=== PATIENT | male | born 1955 | race Caucasian/White ===

== ENCOUNTER → 2017-07-03 | Outpatient (CLI) | payer BC ==
[~2017-07-03] MED LIST: ASPIRIN 32325 MG/TAB PO; ASPIRIN 81M81 MG/TA2 PO; BUPROPRION; CYMBALTA PO; DIOVAN 80MG80 MG PO; DIOVAN160 MG PO; LIPITOR 80MG80 MG PO; LOPRESSOR 550 MG/TAB PO; MOTRIN 800800 MG/TAB PO; PLAVIX 75MG TAB75 MG PO; WELLBUTRIN XL300 M1 PO
== END ==
LOC: COL.RAD 07:45
DX: M25.512 Pain in left shoulder (principal)
CPT/HCPCS: J2704; J3301; Q9967

== ENCOUNTER → 2017-11-15 | Outpatient (CLI) | payer BC | LOC: SUN.DIA 13:28 | DX: E11.9 Type 2 diabetes mellitus without complications (principal); I10 Essential (primary) hypertension; E66.9 Obesity, unspecified | CPT/HCPCS: G0108 ==

== ENCOUNTER → 2017-12-06 | Outpatient (CLI) | payer BC | LOC: SUN.DIA 08:34 | DX: E11.9 Type 2 diabetes mellitus without complications (principal); I10 Essential (primary) hypertension; E66.9 Obesity, unspecified | CPT/HCPCS: G0108 ==

== ENCOUNTER → 2017-12-26 | Outpatient (CLI) | payer BC | LOC: SUN.DIA 09:56 | DX: E11.9 Type 2 diabetes mellitus without complications (principal); I10 Essential (primary) hypertension; E66.9 Obesity, unspecified | CPT/HCPCS: G0109 ==

== ENCOUNTER → 2018-01-02 | Outpatient (CLI) | payer BC | LOC: SUN.DIA 16:06 | DX: E11.9 Type 2 diabetes mellitus without complications (principal); I10 Essential (primary) hypertension; E66.9 Obesity, unspecified | CPT/HCPCS: G0109 ==

== ENCOUNTER → 2018-01-09 | Outpatient (CLI) | payer BC | LOC: SUN.DIA 08:15 | DX: E11.9 Type 2 diabetes mellitus without complications (principal); I10 Essential (primary) hypertension; E66.9 Obesity, unspecified | CPT/HCPCS: G0109 ==

== ENCOUNTER → 2018-01-16 | Outpatient (CLI) | payer BC | LOC: SUN.DIA 14:13 | DX: E11.9 Type 2 diabetes mellitus without complications (principal); I10 Essential (primary) hypertension; E66.9 Obesity, unspecified | CPT/HCPCS: G0109 ==

== ENCOUNTER 2018-03-05 15:10 | Emergency (ER) | payer SELFPAY ==
[~2018-03-05] VITALS: Ht 182.9 cm; Wt 129.5 kg
[2018-03-05 15:19] VITALS: BP 142/75; TEMP 98.2
[2018-03-05] MEDS ORDERED: NORCO 325 MG-51 TAB PO (16:27)
[2018-03-05 16:41] VITALS: PULSE 66
== END 2018-03-05 16:41 | disposition home or self-care (01) ==
LOC: COL.ER 15:10
DX: S20.219A Contusion of unspecified front wall of thorax, initial encounter (principal); I10 Essential (primary) hypertension; E11.9 Type 2 diabetes mellitus without complications; E78.00 Pure hypercholesterolemia, unspecified; Z79.02 Long term (current) use of antithrombotics/antiplatelets; Z79.82 Long term (current) use of aspirin; V29.9XXA Motorcycle rider (driver) (passenger) injured in unspecified traffic accident, initial encounter; Y92.410 Unspecified street and highway as the place of occurrence of the external cause
CPT/HCPCS: J3010

== ENCOUNTER → 2018-04-09 | Outpatient (CLI) | payer BC ==
[~2018-04-09] MED LIST changes: +NORCO 325 MG-51 TAB PO
== END ==
LOC: SUN.DIA 08:36
DX: E11.9 Type 2 diabetes mellitus without complications (principal); I10 Essential (primary) hypertension; E66.9 Obesity, unspecified
CPT/HCPCS: G0108

== ENCOUNTER → 2018-07-09 | Outpatient (CLI) | payer BC | LOC: SUN.DIA 09:27 | DX: E11.9 Type 2 diabetes mellitus without complications (principal); I10 Essential (primary) hypertension; E66.9 Obesity, unspecified | CPT/HCPCS: G0108 ==

== ENCOUNTER → 2018-10-01 | Outpatient (CLI) | payer BC | LOC: DIA.ED 09:53 → SUN.DIA 15:44 | DX: E11.9 Type 2 diabetes mellitus without complications (principal); I10 Essential (primary) hypertension; E66.9 Obesity, unspecified | CPT/HCPCS: G0108 ==

== ENCOUNTER 2019-11-23 17:00 | Emergency (ER) | payer MEDICARE, OTHER ==
[~2019-11-23] VITALS: Ht 182.9 cm; Wt 131.8 kg
[2019-11-23 17:14] VITALS: BP 129/78; TEMP 97.6
[2019-11-23] MEDS ORDERED: CEPHALEXIN500 M1 PO (18:11)
[2019-11-23 18:48] VITALS: PULSE 78
== END 2019-11-23 18:48 | disposition home or self-care (01) ==
LOC: COL.ER 17:00
DX: S61.210A Laceration without foreign body of right index finger without damage to nail, initial encounter (principal); Z79.02 Long term (current) use of antithrombotics/antiplatelets; Z79.82 Long term (current) use of aspirin; W27.0XXA Contact with workbench tool, initial encounter; Y92.009 Unspecified place in unspecified non-institutional (private) residence as the place of occurrence of the external cause

== ENCOUNTER → 2019-12-05 | Outpatient (CLI) | payer MEDICARE, OTHER ==
[~2019-12-05] MED LIST changes: +CEPHALEXIN500 M1 PO
[2019-12-05 08:07] VITALS: BP 127/78; PULSE 58; TEMP 97.1
== END ==
LOC: COL.ER 07:54
DX: Z48.02 Encounter for removal of sutures (principal)

== ENCOUNTER 2020-07-21 10:09 | Day surgery (SDC) | payer MEDICARE, OTHER ==
[~2020-07-21] VITALS: Ht 182.9 cm; Wt 135.7 kg
[2020-07-21] VITALS (301 sets, daily range): BP systolic 126–158; BP diastolic 71–97; PULSE 53–91; TEMP 97.4–98.7; O2SAT 93–100
[2020-07-21] MEDS ORDERED: COZAAR100 MG PO (10:34)
[2020-07-21] MEDS ORDERED: NORVASC 5MG5 MG/TAB PO (10:35)
[2020-07-21] MEDS ORDERED: GLUCOPHAGE500 MG/TAB PO (10:36)
[2020-07-21] MEDS ORDERED: JARDIANCE25 PO (10:36)
[2020-07-21] MEDS ORDERED: LANTUS100 U/ML SQ (10:37)
[2020-07-21] MEDS ORDERED: INSULIN LI100 UNIT/2 SQ (10:38)
[2020-07-21] MEDS ORDERED: TRULICITY3 MG/0.5 M SQ (10:39)
[2020-07-21 11:22] LABS: HEMOGLOBIN 14.7 g/dl (13.5-18.0); MEAN CELL VOLUME 82 fl (80.0-100.0); MEAN CORPUSCULAR HEMOGLOBIN 27 pg (27.0-31.0); MEAN CORPUSCULAR HGB CONC 33 g/dl (33.0-37.0); MEAN PLATELET VOLUME 9.2 fl (7.4-10.4); PLATELET COUNT 167 K/mm3 (130-400); RED BLOOD COUNT 5.37 M/mm3 (4.20-5.60); REDCELL DISTRIBUTION WIDTH-CV 13.6 % (11.5-14.5)
[2020-07-21 11:40] LABS: ALBUMIN 4.1 gm/dL (3.5-5.0); BILIRUBIN,TOTAL 0.5 mg/dL (0.0-1.0); CALCIUM 9.1 mg/dL (8.4-10.2); CREATININE, serum 0.93 (0.66-1.25); INR 1.1 (0.8-3.0); POTASSIUM 4.1 mmol/L (3.4-5.0); PROTHROMBIN TIME 11.9 SECONDS (9.7-12.8); TOTAL PROTEIN 6.9 gm/dL (6.4-8.2)
[2020-07-21 12:51] LABS: THYROID STIMULATING HORMONE 5.14 uIU/mL (0.465-4.680)
[2020-07-21 12:59] LABS: MAGNESIUM 2.2 mg/dL (1.6-2.3)
--- NOTE | 2020-07-21 19:04 | NUR ---
Pt TR band removed at 1845. No bleeding or drainage noted. Bandage put in place. PT denies any pain. Vitals are WNL. Report given to PAT Rivas. Care relinquished at this time.
[2020-07-22] VITALS (239 sets, daily range): BP systolic 119–157; BP diastolic 75–99; PULSE 60–65; TEMP 98–98.7; O2SAT 91–99
[2020-07-22 04:45] LABS: BASO % 0.4 % (0.0-2.0); EOS # 0.2 (0.0-0.7); EOS % 2.5 % (0-4.0); GRAN # 5.3 (1.4-6.5); GRAN % 65.7 % (42.2-75.2); HEMATOCRIT 46.1 % (42.0-52.0); HEMOGLOBIN 15.2 g/dl (13.5-18.0); LYMPH # 1.8 (1.2-3.4); LYMPH % 22.1 % (20.0-51.0); MEAN CELL VOLUME 83 fl (80.0-100.0); MEAN CORPUSCULAR HEMOGLOBIN 27 pg (27.0-31.0); MEAN CORPUSCULAR HGB CONC 33 g/dl (33.0-37.0); MEAN PLATELET VOLUME 9.2 fl (7.4-10.4); MONO # 0.7 (0.1-0.6); MONO % 8.9 % (1.7-9.3); PLATELET COUNT 153 K/mm3 (130-400); RED BLOOD COUNT 5.57 M/mm3 (4.20-5.60)
[2020-07-22 04:58] LABS: CALCIUM 9.2 mg/dL (8.4-10.2); CREATININE, serum 1.14 (0.66-1.25); POTASSIUM 3.8 mmol/L (3.4-5.0)
--- NOTE | 2020-07-22 07:00 | NUR ---
RECEIVED REPORT FROM PAT SAHA. PT RESTING WATCHING TV. VSS. CALL LIGHT AND URINAL WITHIN REACH.
--- NOTE | 2020-07-22 08:43 | NUR ---
SW met with the patient to discuss discharge plan. The patient lives in [place] with his , Luma (ph#[phone]). He reports independence with ADLs and does not have any DME. The patient's PCP is Dr. Bruno Whitney and he receives his medications from [facility]. He reports no difficulties obtaining his meds. The patient is unsure if he has a DPOA-HC, but he was not interested in completing one at this time. The patient plans to return home with his upon discharge. No additional needs at this time.
[2020-07-22] MEDS ORDERED: EFFIENT10 MG PO (09:13)
[2020-07-22] MEDS ORDERED: TOPROL XL 25MG25 MG PO (09:14)
--- NOTE | 2020-07-22 09:57 | NUR ---
ALL PAPERWORK GIVEN TO PT AND AT BEDSIDE. ALL PERSONAL BELONGINGS SENT WITH PT. PT REQUESTS TO AMBULATE WITH DC. DENIES ANY CP/PRESSURE.
--- NOTE | 2020-07-22 10:34 | NUR ---
Initial visit; Patient thanked [employer] for looking in on him and offering God's blessings and to keep him in [employer]'s prayers.
== END 2020-07-22 09:58 | disposition home or self-care (01) ==
LOC: COL.CAR 10:09 → ICU 12:40 → COL.CAR 12:40 → ICU 07-22 09:58 → COL.CAR 07-22 09:58 → ICU 07-22 09:58
PROVIDERS: Internal Medicine Cardiovascular Disease
DX: I25.110 Atherosclerotic heart disease of native coronary artery with unstable angina pectoris (principal); I44.7 Left bundle-branch block, unspecified; I48.0 Paroxysmal atrial fibrillation; I25.10 Atherosclerotic heart disease of native coronary artery without angina pectoris; I10 Essential (primary) hypertension; E78.5 Hyperlipidemia, unspecified; Z95.5 Presence of coronary angioplasty implant and graft; Z20.822 Contact with and (suspected) exposure to COVID-19
CPT/HCPCS: C1725; C1769; C1874; C1887; C9600; J0583; J1644; J1940; J2250; J3010

== ENCOUNTER 2020-09-20 15:13 | Outpatient (RCR) | payer MEDICARE, OTHER ==
[~2020-09-20 15:13] MED LIST changes: +COZAAR100 MG PO; +EFFIENT10 MG PO; +GLUCOPHAGE500 MG/TAB PO; +INSULIN LI100 UNIT/2 SQ; +JARDIANCE25 PO; +LANTUS100 U/ML SQ; +NORVASC 5MG5 MG/TAB PO; +TOPROL XL 25MG25 MG PO; +TRULICITY3 MG/0.5 M SQ
== END 2020-11-02 | disposition home or self-care (01) ==
LOC: COL.CR
DX: Z48.812 Encounter for surgical aftercare following surgery on the circulatory system (principal); Z95.5 Presence of coronary angioplasty implant and graft

== ENCOUNTER → 2021-06-13 | Outpatient (CLI) | payer MEDICARE, OTHER | LOC: COL.RAD 08:20 | DX: Z13.6 Encounter for screening for cardiovascular disorders (principal); I71.4 Abdominal aortic aneurysm, without rupture ==

== ENCOUNTER → 2021-06-15 | Outpatient (CLI) | payer MEDICARE, OTHER | LOC: COL.RAD 09:04 | DX: M25.561 Pain in right knee (principal); M25.861 Other specified joint disorders, right knee; Z96.651 Presence of right artificial knee joint | CPT/HCPCS: A9503 ==

== ENCOUNTER 2023-03-20 10:26 | Outpatient (CLI) | payer MEDICARE, OTHER ==
[~2023-03-20] VITALS: Ht 182.9 cm; Wt 119.5 kg
[2023-03-20] VITALS (10 sets, daily range): BP systolic 107–129; BP diastolic 62–82; PULSE 58–65; TEMP 97.6
[2023-03-20 10:59] LABS: HEMATOCRIT 47.6 % (42.0-52.0); HEMOGLOBIN 15.7 g/dl (13.5-18.0); MEAN CELL VOLUME 85 fl (80.0-100.0); MEAN CORPUSCULAR HEMOGLOBIN 28 pg (27-31); MEAN CORPUSCULAR HGB CONC 33 g/dl (33.0-37.0); MEAN PLATELET VOLUME 9.1 fl (7.4-10.4); PLATELET COUNT 144 K/mm3 (130-400); RED BLOOD COUNT 5.58 M/mm3 (4.20-5.60); REDCELL DISTRIBUTION WIDTH-CV 13.9 % (11.5-14.5)
[2023-03-20 11:05] LABS: INR 1.1 (0.8-3.0)
[2023-03-20 11:07] LABS: PARTIAL THROMBOPLASTIN TIME 30.7 SECONDS (26.0-37.0)
[2023-03-20] MEDS ORDERED: COREG 25MG25 MG/TAB PO (11:18)
[2023-03-20] MEDS ORDERED: MASON NATURAL1200 MG PO (11:19)
[2023-03-20] MEDS ORDERED: PROTONIX 40MG T40 MG PO (11:19)
[2023-03-20 11:20] LABS: CALCIUM 9.4 mg/dL (8.4-10.2); CREATININE, serum 0.87 mg/dL (0.72-1.25); POTASSIUM 4.2 mmol/L (3.5-4.5)
[2023-03-20] MEDS ORDERED: ENTRESTO 24 MG1 EACH PO (13:58)
[2023-03-20] MEDS ORDERED: NORVASC 5MG5 MG/TAB PO (14:10)
--- NOTE | 2023-03-20 17:07 | NUR ---
pt tolerated recovery period well and was assisted to main lobby via wheelchair and was accompanied by . pt's right radial dressing was clean dry and intact and pt was free from signs of bleeding and hematoma. vs remained within normal limits and pt verbalized discharge instructions. pt IV discontinued and pt remained free from acute concerns and complaints at time of discharge.
--- NOTE | 2023-03-27 12:18 | NUR ---
Spoke with patient on phone regarding qualification for CR. Pt. informed he does not qualify for phase II due to dx EF 35-40%. He verbalized understanding. Staff offered information for phase III, but pt. declined. Sanna STEWART
== END 2023-03-20 16:45 | disposition home or self-care (01) ==
LOC: COL.CAR 10:26 → EDSTATUS 10:30 → COL.CAR 16:45
PROVIDERS: Internal Medicine Cardiovascular Disease
DX: I25.10 Atherosclerotic heart disease of native coronary artery without angina pectoris (principal); I42.0 Dilated cardiomyopathy; I10 Essential (primary) hypertension; E78.2 Mixed hyperlipidemia; I35.1 Nonrheumatic aortic (valve) insufficiency; I77.819 Aortic ectasia, unspecified site; E66.01 Morbid (severe) obesity due to excess calories; Z98.61 Coronary angioplasty status; Z79.82 Long term (current) use of aspirin; Z68.33 Body mass index [BMI] 33.0-33.9, adult
CPT/HCPCS: C1769; J1644; J2250; J3010; Q9967

== ENCOUNTER 2023-11-30 11:06 | Day surgery (SDC) | payer MEDICARE, OTHER ==
[~2023-11-30] VITALS: Ht 182.9 cm; Wt 116.6 kg
[~2023-11-30 11:06] MED LIST changes: +COREG 25MG25 MG/TAB PO; +ENTRESTO 24 MG1 EACH PO; +LR 1,000 ML IV SCH; +MASON NATURAL1200 MG PO; +Ondansetron 4 MG/2 ML VIAL IV PRN; +PROTONIX 40MG T40 MG PO
[2023-11-30] MEDS ORDERED: DIOVAN 40MG40 MG PO (11:38)
[2023-11-30] MEDS ORDERED: MOBIC15 MG PO (11:40)
[2023-11-30 12:04] VITALS: BP 146/92; PULSE 60; TEMP 97.6
[2023-11-30] MEDS ORDERED: Lidocaine PF 2% (20 MG/ML) 5 ML VIAL ONE (13:11)
[2023-11-30 13:40] VITALS: BP 120/77; PULSE 59
[2023-11-30 14:00] VITALS: BP 134/76; PULSE 55
--- NOTE | 2023-11-30 16:42 | NUR ---
1340- PT BACK FROM ENDO PROCEDURE TO BAY 9 VIA CART. PT AMBULATED FROM CART TO RECLINER WITH ASSISTANCE. MONITORS ON AND ALARMS SET. CALL LIGHT WITHIN REACH. REPORT RECEIVED. PT REQUESTING FOOD AND DRINK. NO OTHER NEEDS AT THIS TIME. 1400- PT TAKING FOOD AND DRINK WELL. NO COMPLICATIONS NOTED. 1410- DISCHARGE INSTRUCTIONS GIVEN TO PT. QUESTIONS ANSWERED. 1420- PT TRANSFERRED OUT OF HOSPITAL VIA WHEELCHAIR TAKEN OUT BY NURSES AID TO OWN PRIVATE VEHICLE DRIVEN BY .
== END 2023-11-30 14:20 | disposition home or self-care (01) ==
LOC: SDCO 11:06
DX: Z12.11 Encounter for screening for malignant neoplasm of colon (principal); K51.40 Inflammatory polyps of colon without complications; K57.30 Diverticulosis of large intestine without perforation or abscess without bleeding; G47.33 Obstructive sleep apnea (adult) (pediatric); Z86.010 Personal history of colon polyps; Z79.82 Long term (current) use of aspirin
CPT/HCPCS: J2704; J7120